=== PATIENT | female | born 1965 | race Caucasian/White ===

== ENCOUNTER 2017-03-15 10:19 | Emergency (ER) | payer OTHER ==
[~2017-03-15] VITALS: Ht 160 cm; Wt 81.2 kg
[~2017-03-15 10:19] MED LIST: ANAPROX DS550 MG PO; ATIVAN1 MG PO; CIPRODEX 0.3%-7.5 ML OT; FLEXERIL5 MG PO; Fioricet 325 MG1 TAB PO; LOMOTIL 0.025 M1 TA1 PO; MIDRIN (DURADR1 CAP PO; MOTRIN800 MG PO; NEURONTIN300 MG PO; NKHM; PHENERGAN25 M1 PO; PREDNICOT20 MG PO; RELPAX20 MG PO; ROBAXIN750 MG PO; ROBITUSSIN DM 105 ML PO; SKELAXIN800 MG PO; TRAMADOL HCL50 MG PO; ULTRAM50 MG PO; ZANTAC150 MG PO; ZITHROMAX Z PA250 MG PO; ZOFRAN ODT4 MG SL; ZOVIRAX800 MG PO; [UNRECOGNIZED DRUG - REMARK]
[2017-03-15] MEDS ORDERED: MEDROL DOSEPAK4 MG PO (10:43)
[2017-03-15] MEDS ORDERED: ULTRAM50 MG PO (10:43)
[2017-03-15] MEDS ORDERED: CYCLOBENZAPRINE10 MG PO (10:43)
== END 2017-03-15 12:11 | disposition home or self-care (01) ==
LOC: ED 10:19
DX: M54.30 Sciatica, unspecified side (principal); Z88.0 Allergy status to penicillin; Z88.1 Allergy status to other antibiotic agents; Z88.6 Allergy status to analgesic agent; Z88.8 Allergy status to other drugs, medicaments and biological substances; Z90.49 Acquired absence of other specified parts of digestive tract

== ENCOUNTER 2019-09-16 15:23 | Emergency (ER) | payer OTHER ==
[~2019-09-16] VITALS: Wt 65.8 kg
[~2019-09-16 15:23] MED LIST changes: +CYCLOBENZAPRINE10 MG PO; +MEDROL DOSEPAK4 MG PO
[2019-09-16 15:40] LABS: BASO % 0.3 % (0.0-1.0); EOS # 0.1 10*3/uL (0.0-0.4); EOS % 1.1 % (1.0-4.0); HEMATOCRIT 44.1 % (37.0-47.0); HEMOGLOBIN 14.5 g/dl (12.0-16.0); LYMPH # 2.6 10*3/uL (1.3-4.4); MEAN CELL VOLUME 88.2 fl (81.0-99.0); MEAN CORPUSCULAR HGB CONC 32.9 g/dl (33.0-37.0); MEAN PLATELET VOLUME 10.5 fl (9.6-12.3); MONO # 0.6 10*3/uL (0.1-1.0); MONO % 8.6 % (3.0-9.0); NEUT # 3.2 10*3/uL (2.3-7.9); NEUT % 49.7 % (47.0-73.0); PLATELET COUNT AUTOMATED 337 10*3/uL (130-400); RED CELL DISTRI WIDTH 13.9 % (0-14.5); WHITE BLOOD COUNT 6.5 10*3/uL (4.8-10.8)
[2019-09-16 15:51] LABS: ACT PARTIAL THROMBO TIME 27.4 SECONDS (20.0-32.1); INTERNATIONAL NORM RATIO 0.9 (2.0-3.5)
[2019-09-16 15:57] LABS: ALBUMIN 4.2 gm/dl (3.1-4.5); ALKALINE PHOSPHATASE 86 U/L (45-117); BUN 11 mg/dl (7-24); CHLORIDE 108 mmol/L (98-107); CREATININE 0.98 mg/dL (0.55-1.02); SGOT/AST 18 IU/L (3-35); SGPT/ALT 24 U/L (12-78); SODIUM 140 mmol/L (136-145); TOTAL PROTEIN 8.1 gm/dL (6.4-8.2)
[2019-09-16 15:59] LABS: TROPONIN I < 0.015 ng/ml (<0.045)
== END 2019-09-16 20:10 | disposition home or self-care (01) ==
LOC: ED 15:23
PROVIDERS: Emergency Medicine
DX: R07.9 Chest pain, unspecified (principal); R06.02 Shortness of breath; R51 Headache; Z88.0 Allergy status to penicillin; Z88.1 Allergy status to other antibiotic agents; Z88.6 Allergy status to analgesic agent; Z88.8 Allergy status to other drugs, medicaments and biological substances

== ENCOUNTER 2020-05-27 12:41 | Observation (INO) | payer OTHER ==
[~2020-05-27] VITALS: Ht 160 cm; Wt 74.4 kg
[2020-05-27 12:45] VITALS: BP 118/68
[2020-05-27 13:00] LABS: BASO % 0.4 % (0.0-1.0); EOS % 0.8 % (1.0-4.0); HEMATOCRIT 39.6 % (37.0-47.0); LYMPH # 1.8 10*3/uL (1.3-4.4); LYMPH % 36.2 % (27.0-41.0); MEAN CELL VOLUME 87.2 fl (81.0-99.0); MEAN CORPUSCULAR HGB 28.9 pg (27.0-31.0); MEAN CORPUSCULAR HGB CONC 33.1 g/dl (33.0-37.0); MEAN PLATELET VOLUME 10.5 fl (9.6-12.3); MONO # 0.4 10*3/uL (0.1-1.0); MONO % 7.8 % (3.0-9.0); NEUT # 2.7 10*3/uL (2.3-7.9); NEUT % 54.6 % (47.0-73.0); PLATELET COUNT AUTOMATED 296 10*3/uL (130-400); RED BLOOD COUNT 4.54 10*6/uL (4.10-5.10); RED CELL DISTRI WIDTH 13.4 % (0-14.5); WHITE BLOOD COUNT 4.9 10*3/uL (4.8-10.8)
[2020-05-27 13:10] LABS: ACT PARTIAL THROMBO TIME 28.1 SECONDS (20.0-32.1); INTERNATIONAL NORM RATIO 0.9 (2.0-3.5)
--- NOTE | 2020-05-27 13:15 | NUR ---
PT STILL C/O CHEST HEAVINESS, SL NITRO TO BE GIVEN.
[2020-05-27 13:19] LABS: ALBUMIN 3.9 gm/dl (3.1-4.5); ALKALINE PHOSPHATASE 72 U/L (45-117); BUN 5 mg/dl (7-24); CHLORIDE 113 mmol/L (98-107); CREATININE 0.84 mg/dL (0.55-1.02); POTASSIUM 3.4 mmol/L (3.5-5.1); SGOT/AST 17 IU/L (3-35); SGPT/ALT 19 U/L (12-78); SODIUM 142 mmol/L (136-145); TOTAL PROTEIN 7.5 gm/dL (6.4-8.2)
[2020-05-27 13:20] LABS: TROPONIN I < 0.015 ng/ml (<0.045)
--- NOTE | 2020-05-27 14:00 | NUR ---
PT REPORTS THE NITRO HAD MININAL EFFECT. PT STILL SEEM ANXIOUS, SHE EVEN REPORTS THAT SHE FEELS IT IS HER NERVES.
[2020-05-27 14:05] VITALS: BP 118/64
[2020-05-27 15:30] VITALS: BP 118/64
--- NOTE | 2020-05-27 15:30 | NUR ---
PT REPORTS THE ATIVAN WAS HELPFUL PT IS STILL TEARFUL AT TIMES.
--- NOTE | 2020-05-27 17:20 | NUR ---
A 54 YEAR OLD FEMALE PATIENT, admitted to 5E, under the services of CHANDRAKANT Lopez DO with a diagnosis of CHEST PAIN, RULE OUT NC. Chief complaint is CHEST PAIN, ANXIETY R/T SIGNIFICANT LIFE STRESSOR.. Patient arrived via CART WITH RN from ER. Monitor applied. Initial assessment completed. Vital signs taken and recorded. See assessment for past medical history, medications and allergies. Patient and/or family oriented to unit. [facility] 530 visitation policy reviewed. Clothing/patient valuable form completed. JEANINE HA
--- NOTE | 2020-05-27 17:42 | NUR ---
DOREEN MONAE AT THIS TIME, AWAITING CALL BACK
--- NOTE | 2020-05-27 19:20 | NUR ---
REPORT RECEIVED. PT WATCHING TV. NO COMPLAINTS, CALL LIGHT IN REACH
[2020-05-27 20:00] VITALS: BP 125/67
--- NOTE | 2020-05-27 21:30 | NUR ---
PT RESTING WITH EYES CLOSED AT THIS TIME.
--- NOTE | 2020-05-27 21:36 | NUR ---
DR. MURILLO NOTIFIED THAT PT HR IS PERIODICALLY DROPPING IN THE 40'S. UPON ASSESSMENT, PT ASLEEP. PT AWAKENS EASILY AND HR JUMPS BACK UP TO 60'S. ORDERED TO KEEP AN EYE ON PT AND NOTIFY IF PT IS AWAKE AND DROPPING INTO 40'S
[2020-05-28] VITALS: BP 115/70
--- NOTE | 2020-05-28 | NUR ---
PT SLEEPING AT THIS TIME. RESPIRATIONS EASY
[2020-05-28] MEDS ORDERED: PANTOPRAZOLE SO20 MG PO (04:52)
--- NOTE | 2020-05-28 06:00 | NUR ---
PT ASLEEP AT THIS TIME.
[2020-05-28 06:35] LABS: BASO % 0.4 % (0.0-1.0); EOS # 0.1 10*3/uL (0.0-0.4); EOS % 2.3 % (1.0-4.0); HEMATOCRIT 39.9 % (37.0-47.0); LYMPH # 2.7 10*3/uL (1.3-4.4); LYMPH % 50.8 % (27.0-41.0); MEAN CELL VOLUME 89.7 fl (81.0-99.0); MEAN CORPUSCULAR HGB CONC 32.3 g/dl (33.0-37.0); MEAN PLATELET VOLUME 11.3 fl (9.6-12.3); MONO # 0.5 10*3/uL (0.1-1.0); MONO % 8.6 % (3.0-9.0); NEUT % 37.7 % (47.0-73.0); PLATELET COUNT AUTOMATED 260 10*3/uL (130-400); RED BLOOD COUNT 4.45 10*6/uL (4.10-5.10); RED CELL DISTRI WIDTH 13.7 % (0-14.5); WHITE BLOOD COUNT 5.3 10*3/uL (4.8-10.8)
[2020-05-28 06:41] LABS: ALBUMIN 3.3 gm/dl (3.1-4.5); ALKALINE PHOSPHATASE 58 U/L (45-117); BUN 8 mg/dl (7-24); CHLORIDE 115 mmol/L (98-107); CHOLESTEROL 199 mg/dL (<200); CREATININE 0.76 mg/dL (0.55-1.02); HDL CHOLESTEROL 39 mg/dl (40-60); LDL CHOLESTEROL 131 mg/dL (9-159); SGOT/AST 9 IU/L (3-35); SGPT/ALT 15 U/L (12-78); SODIUM 143 mmol/L (136-145); TOTAL PROTEIN 6.5 gm/dL (6.4-8.2); TRIGLYCERIDES 146 mg/dl (<150); VLDL CHOLESTEROL 29 mg/dL (6-40)
--- NOTE | 2020-05-28 07:40 | NUR ---
CALL TO DR MONAE ANSWERING SERVICE AT THIS TIME, STATE THEY WILL PAGE HIM TO CALL HERE
[2020-05-28 08:00] VITALS: BP 123/73
[2020-05-28 08:18] LABS: VITAMIN D, 25-HYDROXY 61.7 ng/mL (30-100)
--- NOTE | 2020-05-28 08:22 | NUR ---
SPOKE WITH DR MONAE REGARDING CONSULT, NEW ORDERS RECIEVED
--- NOTE | 2020-05-28 09:00 | NUR ---
Meat Supervisor in to talk to patient. Patient states lives at home with alone. There are no steps in the home. Physician: kaushik guy [facility] [place] [facility] Patient's level of ADLs: INDEPENDENT Patient has working utilities: all working DME: none Follow-up physician's appointment after d/c: will be made by hospitalist nurse director upon discharge Does patient want to access PORTAL?: no Discharge plan discussed with patient, she states she lives at home alone, she due to being from her . she is independent in adls and ambulation, drives, she stated she would return home when discharged and denies any home needs. discussed with her not having any insurance, she stated she does have insurance just didn't have her insurance card with her, but plans to bring it back to the business office when she is discharged. patient denies any home needs at this time. MARTIN CAMPOS
--- NOTE | 2020-05-28 11:15 | NUR ---
PO ATIVAN GIVEN PER ORDER, PATIENT C/O ANXIETY AND IS VERY TEARFUL IN CONVERSATION WITH THIS RN
[2020-05-28 12:00] VITALS: BP 133/73
[2020-05-28] MEDS ORDERED: CARVEDILOL3.125 MG PO (13:36)
[2020-05-28] MEDS ORDERED: ASPIRIN CHEWABL81 M1 PO (13:36)
[2020-05-28 16:00] VITALS: BP 110/66
--- NOTE | 2020-05-28 18:50 | NUR ---
SPOKE WITH DR MONAE PER PT REQUEST. HE WILL SEE PT THIS EVENING.
--- NOTE | 2020-05-28 19:45 | NUR ---
DR MONAE IN TO SEE PT. STATES PT OK FOR DC AND IS TO SCHEDULE OUTPT STRESS. PATIENT INFO TO BE FAXED TO OFFICE PER DR REQUEST.
[2020-05-28 20:00] VITALS: BP 131/68
[2020-05-29] VITALS: BP 119/77
[2020-05-29 08:00] VITALS: BP 132/80
[2020-05-29] MEDS ORDERED: CYMBALTA30 MG PO (09:52)
[2020-05-29] MEDS ORDERED: VISTARIL25 M2 PO (09:52)
--- NOTE | 2020-05-29 10:19 | NUR ---
Discharge instructions reviewed with patient/family. Patient receptive and verbalizes understanding. Follow-up care arranged. Written instructions given to patient/family. DARIAN JUAREZ.
== END 2020-05-29 10:19 | disposition home or self-care (01) ==
LOC: ED 12:41 → EDHOLD 15:03 → 5E 15:03 → EDHOLD 15:03 → 5E 16:16
PROVIDERS: Emergency Medicine; Registered Nurse; ADMIT Internal Medicine; ATTEND Internal Medicine
DX: R07.89 Other chest pain (principal); F41.9 Anxiety disorder, unspecified; E78.5 Hyperlipidemia, unspecified; E87.6 Hypokalemia; E87.8 Other disorders of electrolyte and fluid balance, not elsewhere classified; Q60.2 Renal agenesis, unspecified

== ENCOUNTER → 2020-06-13 | Outpatient (CLI) | payer OTHER ==
[~2020-06-13] MED LIST changes: +ASPIRIN CHEWABL81 M1 PO; +CARVEDILOL3.125 MG PO; +CYMBALTA30 MG PO; +PANTOPRAZOLE SO20 MG PO; +VISTARIL25 M2 PO
--- NOTE | 2020-06-13 12:59 | NUR ---
INFORMED CONSENT SIGNED FOR LEXISCAN STRESS TEST WITH DR. MONAE. RESTING EKG NSR, HR 62, BP 136/66. PULSE OX 99% AND LUNGS CLEAR. COMPLETED ONE MINUTE OF LEXISCAN PROTOCOL RECEIVING LEXISCAN 0.4MG OVER 10 SECONDS. NO ARRHYTHMIAS NOTED. NONDIAGNOSTIC ST CHANGES NOTED. PT C/O CHEST TIGHTNESS. LAST RECOVERY HR 93, BP 130/79. WAITING NUCLEAR SCANNING IN STABLE CONDITION.
== END | disposition home or self-care (01) ==
LOC: CANSCHCLI → CARD 00:03
PROVIDERS: ATTEND Internal Medicine Cardiovascular Disease
DX: I20.8 Other forms of angina pectoris (principal); R53.81 Other malaise

== ENCOUNTER → 2021-06-05 | Outpatient (CLI) | payer OTHER | END | disposition home or self-care (01) | LOC: COVID19 15:51 | PROVIDERS: ATTEND Internal Medicine | DX: Z11.52 Encounter for screening for COVID-19 (principal) ==

== ENCOUNTER 2021-06-30 11:11 | Emergency (ER) | payer OTHER ==
[~2021-06-30] VITALS: Ht 160 cm; Wt 64.4 kg
== END 2021-06-30 14:06 | disposition home or self-care (01) ==
LOC: ED 11:11
DX: S16.1XXA Strain of muscle, fascia and tendon at neck level, initial encounter (principal); Z88.0 Allergy status to penicillin; Z88.6 Allergy status to analgesic agent; Z88.1 Allergy status to other antibiotic agents; Z79.899 Other long term (current) drug therapy; V43.52XA Car driver injured in collision with other type car in traffic accident, initial encounter; Y93.89 Activity, other specified; Y92.89 Other specified places as the place of occurrence of the external cause; Y99.8 Other external cause status

== ENCOUNTER 2021-07-06 10:52 | Emergency (ER) | payer OTHER | END 2021-07-06 12:38 | disposition home or self-care (01) | LOC: ED 10:52 | DX: J06.9 Acute upper respiratory infection, unspecified (principal); Z20.822 Contact with and (suspected) exposure to COVID-19; Z88.1 Allergy status to other antibiotic agents; Z88.0 Allergy status to penicillin; Z88.6 Allergy status to analgesic agent; Z79.899 Other long term (current) drug therapy; Z90.49 Acquired absence of other specified parts of digestive tract; Z98.51 Tubal ligation status ==

== ENCOUNTER → 2021-09-15 | Outpatient (CLI) | payer OTHER | LOC: COVID19 17:28 | PROVIDERS: ATTEND Internal Medicine | DX: Z11.52 Encounter for screening for COVID-19 (principal); Z20.822 Contact with and (suspected) exposure to COVID-19 ==

== ENCOUNTER → 2022-09-07 | Outpatient (CLI) | payer OTHER | END | disposition home or self-care (01) | LOC: CT 00:15 | PROVIDERS: ATTEND Specialist | DX: J34.89 Other specified disorders of nose and nasal sinuses (principal); J34.2 Deviated nasal septum ==

== ENCOUNTER 2022-11-09 11:43 | Emergency (ER) | payer OTHER ==
[~2022-11-09] VITALS: Ht 160 cm; Wt 60.8 kg
[2022-11-09 12:11] LABS: BASO % 0.5 % (0.0-1.0); EOS % 0.5 % (1.0-4.0); HEMATOCRIT 41.7 % (37.0-47.0); LYMPH # 1.7 10*3/uL (1.3-4.4); LYMPH % 44.2 % (27.0-41.0); MEAN CORPUSCULAR HGB 30.4 pg (27.0-31.0); MEAN CORPUSCULAR HGB CONC 34.5 g/dl (33.0-37.0); MEAN PLATELET VOLUME 11.2 fl (9.6-12.3); MONO # 0.4 10*3/uL (0.1-1.0); MONO % 9.9 % (3.0-9.0); NEUT # 1.7 10*3/uL (2.3-7.9); NEUT % 44.6 % (47.0-73.0); PLATELET COUNT AUTOMATED 251 10*3/uL (130-400); RED BLOOD COUNT 4.74 10*6/uL (4.10-5.10); WHITE BLOOD COUNT 3.7 10*3/uL (4.8-10.8)
[2022-11-09 12:28] LABS: ALKALINE PHOSPHATASE 45 U/L (46-116); BUN 5 mg/dl (9-23); CHLORIDE 107 mmol/L (98-107); POTASSIUM 3.5 mmol/L (3.4-5.1); SGPT/ALT 9 U/L (10-49); TOTAL PROTEIN 7.1 gm/dL (6.0-8.0)
[2022-11-09] MEDS ORDERED: ZYRTEC10 M2 PO ×2 (13:29→18:32)
== END 2022-11-09 13:42 | disposition home or self-care (01) ==
LOC: ED 11:43
PROVIDERS: Nurse Practitioner Family
DX: R09.81 Nasal congestion (principal); G43.909 Migraine, unspecified, not intractable, without status migrainosus; F32.A Depression, unspecified; F41.9 Anxiety disorder, unspecified; K21.9 Gastro-esophageal reflux disease without esophagitis; Z88.1 Allergy status to other antibiotic agents; Z88.0 Allergy status to penicillin; Z88.5 Allergy status to narcotic agent; Z88.8 Allergy status to other drugs, medicaments and biological substances; Z90.49 Acquired absence of other specified parts of digestive tract; Z98.51 Tubal ligation status; Z98.890 Other specified postprocedural states

== ENCOUNTER → 2022-12-11 | Outpatient (CLI) | payer OTHER ==
[~2022-12-11] MED LIST changes: +ZYRTEC10 M2 PO
[2022-12-11 10:06] LABS: BASO % 0.3 % (0.0-1.0); EOS % 0.5 % (1.0-4.0); HEMATOCRIT 42.4 % (37.0-47.0); LYMPH # 1.5 10*3/uL (1.3-4.4); LYMPH % 36.9 % (27.0-41.0); MEAN CELL VOLUME 88.7 fl (81.0-99.0); MEAN CORPUSCULAR HGB 29.5 pg (27.0-31.0); MEAN CORPUSCULAR HGB CONC 33.3 g/dl (33.0-37.0); MEAN PLATELET VOLUME 10.9 fl (9.6-12.3); MONO # 0.3 10*3/uL (0.1-1.0); MONO % 7.3 % (3.0-9.0); NEUT # 2.2 10*3/uL (2.3-7.9); NEUT % 54.7 % (47.0-73.0); PLATELET COUNT AUTOMATED 277 10*3/uL (130-400); RED BLOOD COUNT 4.78 10*6/uL (4.10-5.10); RED CELL DISTRI WIDTH 13.6 % (0-14.5)
[2022-12-11 10:55] LABS: ALKALINE PHOSPHATASE 50 U/L (46-116); BUN 8 mg/dl (9-23); CHLORIDE 107 mmol/L (98-107); CHOLESTEROL 228 mg/dL (<200); LDL CHOLESTEROL 153 mg/dL (9-159); POTASSIUM 3.5 mmol/L (3.4-5.1); SGPT/ALT 8 U/L (10-49); TOTAL PROTEIN 7.1 gm/dL (6.0-8.0); TRIGLYCERIDES 76 mg/dl (<150)
== END | disposition home or self-care (01) ==
LOC: LAB 09:13
PROVIDERS: ATTEND Family Medicine
DX: Z00.00 Encounter for general adult medical examination without abnormal findings (principal); E78.5 Hyperlipidemia, unspecified; R63.4 Abnormal weight loss

== ENCOUNTER 2023-02-12 22:23 | Emergency (ER) | payer OTHER ==
[~2023-02-12] VITALS: Ht 160 cm; Wt 54.9 kg
== END 2023-02-13 03:51 | disposition home or self-care (01) ==
LOC: ED 22:23
DX: M99.04 Segmental and somatic dysfunction of sacral region (principal); M79.605 Pain in left leg; G43.909 Migraine, unspecified, not intractable, without status migrainosus; F32.A Depression, unspecified; F41.9 Anxiety disorder, unspecified; K21.9 Gastro-esophageal reflux disease without esophagitis; E78.00 Pure hypercholesterolemia, unspecified; Z88.1 Allergy status to other antibiotic agents; Z88.0 Allergy status to penicillin; Z88.6 Allergy status to analgesic agent; Z88.5 Allergy status to narcotic agent; Z88.8 Allergy status to other drugs, medicaments and biological substances; Z98.51 Tubal ligation status; Z90.49 Acquired absence of other specified parts of digestive tract; Z98.890 Other specified postprocedural states

== ENCOUNTER → 2025-02-15 | Outpatient (CLI) | payer OTHER ==
[2025-02-15 11:17] LABS: ALKALINE PHOSPHATASE 67 U/L (46-116); BUN 11 mg/dl (9-23); CHLORIDE 106 mmol/L (98-107); POTASSIUM 3.5 mmol/L (3.4-5.1); SGPT/ALT 16 U/L (5-49); TOTAL PROTEIN 7.4 gm/dL (6.0-8.0)
[2025-02-16 05:07] LABS: HBsAG SCREEN Negative (Negative); HCV Ab Non Reactive (Non Reactive); HEP B CORE Ab, IgM Negative (Negative); HEP B SURFACE Ab, Qual Non Reactive (.)
[2025-02-16 14:07] LABS: t-TRANSGLUTAMINASE (tTG) IGA <2 U/mL (0-3); t-TRANSGLUTAMINASE (tTG) IgG 2 U/mL (0-5)
== END | disposition home or self-care (01) ==
LOC: LAB 10:08
PROVIDERS: ATTEND Nurse Practitioner Family
DX: K59.00 Constipation, unspecified (principal); R79.89 Other specified abnormal findings of blood chemistry; Z12.11 Encounter for screening for malignant neoplasm of colon; R13.10 Dysphagia, unspecified; Z11.59 Encounter for screening for other viral diseases; Z80.0 Family history of malignant neoplasm of digestive organs